=== PATIENT | male | born 1975 | race Caucasian/White ===

== ENCOUNTER 2017-10-07 09:58 | Day surgery (SDC) | payer OTHER ==
[~2017-10-07 09:58] MED LIST: Buffered Lidocaine 0.9% SYRIN* 5 ML/SYR SYRINGE INTRADERM ONE; Dexamethasone IV* 4 MG/ML 1 ML (4 MG) IV SLOW PU ONE; Famotidine IV* 10 MG/ML 2 ML (20 mg) IV ONE
[2017-10-07] MEDS ORDERED: Famotidine IV* 10 MG/ML 2 ML (20 mg) ONE (10:16)
[2017-10-07] MEDS ORDERED: Dexamethasone IV* 4 MG/ML 1 ML (4 MG) ONE (10:16)
[2017-10-07] MEDS ORDERED: ceFAZolin 2 GM PREMIX (*) 2 GM/50 ML BAG IVPB ONE (10:17)
[2017-10-07] MEDS ORDERED: Ondansetron INJ* 2 MG/ML VIAL ONE (10:22)
[2017-10-07] MEDS ORDERED: Propofol* 10 MG/ML 20 ML BTL IV PUSH ONE (10:22)
[2017-10-07] MEDS ORDERED: Ketorolac INJ* 30 MG/ML 1 ML VIAL ONE (10:22)
[2017-10-07] MEDS ORDERED: fentaNYL* 50 MCG/ML 2 ML VIAL (100 MCG VIAL) ONE ×3 (10:23→13:51)
[2017-10-07] MEDS ORDERED: Atracurium* 10 MG/ML 10 ML VIAL ONE (10:23)
[2017-10-07] MEDS ORDERED: Midazolam* 1 MG/ML 5 ML VIAL (5 MG) ONE (10:23)
[2017-10-07] MEDS ORDERED: ROPIVACAINE 5 MG/ML 30 ML BTL (0.5%) ONE (11:17)
[2017-10-07] MEDS ORDERED: Midazolam* 1 MG/ML 2 ML VIAL (2 MG) ONE (11:49)
[2017-10-07] MEDS ORDERED: Glycopyrrolate IV* 0.2 MG/ML 1 ML VIAL ONE (12:24)
[2017-10-07] MEDS ORDERED: Bupivacaine 0.25% SDV* 30 ML ONE (12:26)
[2017-10-07] MEDS ORDERED: Naloxone* 0.4 MG/ML 1 ML VIAL IV PRN (12:51)
[2017-10-07] MEDS ORDERED: Ondansetron INJ* 2 MG/ML VIAL IV PRN (12:51)
[2017-10-07] MEDS ORDERED: fentaNYL* 50 MCG/ML 2 ML VIAL (100 MCG VIAL) IV PRN (12:51)
[2017-10-07] MEDS ORDERED: HYDROmorphone INJ* 1 MG/ML CARPUJECT SYRINGE IV PRN (12:51)
[2017-10-07] MEDS ORDERED: oxyCODONE/Acetamin 5/325 MG* TAB PO PRN (12:51)
[2017-10-07 15:31] VITALS: BP 107/80
--- NOTE | 2017-10-12 11:13 | OP ---
DATE OF OPERATION: 10/07/17 [facility] DATE OF : 71 SURGEON: Mitali Huber MD SHIFT BOSS: DIMPLE Roque. An promotions assistant sales marketing was needed for the entirety of the case to help with positioning, retraction, and was utilized throughout all portions of the case. ANESTHESIOLOGIST: Juanjose Guerin MD PRE-OP DIAGNOSES: Right shoulder subscapularis tear and biceps subluxation. POST-OP DIAGNOSES: Right shoulder subscapularis tear and biceps subluxation. OPERATIVE PROCEDURE: 1. Right shoulder arthroscopy with rotator cuff repair, arthroscopic, of the subscapularis; debridement of the supraspinatus. 2. Subacromial decompression with acromioplasty. 3. Subpectoral biceps tenodesis. INDICATIONS: Bassam Mullins is a 42-year-old male, who sustained a work-related injury in June, was diagnosed with a subscapularis tear of proximal portion of the tendon with subluxation in the biceps. He has failed conservative management. Due to his young age, I have determined to do this as soon as possible. Risks and benefits of surgery were discussed at length and included, but are not limited to, bleeding, infection, damage to nerves, vessels, surrounding structures, wound nonhealing, persistent pain, need for further surgery, scarring, stiffness, incomplete relief of symptoms, and risk of anesthesia. DESCRIPTION OF PROCEDURE: The patient was greeted in the preoperative area by the attending surgeon. The correct extremity was marked and consent was confirmed. The patient underwent interscalene nerve block by the anesthesiologist after which he was brought back to the operating suite where he was placed in supine position on the operating table. He then underwent general anesthesia and endotracheal intubation. He was placed in the left lateral decubitus position. All bony prominences were padded. He was secured with a peg board. The right arm was draped unsterile with 10 pounds of traction. The right shoulder was prepped and draped in the usual sterile fashion beginning with chlorhexidine soap scrub and alcohol wipe and a final prep with ChloraPrep. After appropriate surgical pause indicating side, site, and procedure, and administration of antibiotics, the standard posterolateral portal was made sharply with an 11-blade. Scope was introduced into the joint. The joint was examined. There were grade 0 to 1 changes in the humeral head and grade 1 smaller to grade 2 changes with unstable flaps. There was evidence of the biceps subluxed with tearing and irritation to the humeral head from the biceps itself. The subscap was evidently was torn, retracted, but the tendon was still visible. The undersurface of the supraspinatus was intact. There was abundant synovitis in the joint. The head was located appropriately. There was evidence of tearing of the superior labrum. The anterior portal was made in an outside-in fashion. Shaver was used to debride back the anterior, posterior, and superior labrum and do biceps tenotomy. This allowed for better visualization of the subscap tendon. This was then gently mobilized. The coracoid was identified and coracoplasty was done using the bur to remove any possible spurring that may impair the healing or aggravate the repair. The electrocautery device was then used to do a release of the subscap, to allow the tissues to be mobilized in the joint as well as extra-articularly. Once this was done, attention was directed to the subacromial space. The scope was positioned in the subacromial space. The lateral portal was made in outside-in fashion. Shaver was used to remove the abundant bursa that was present. A small anterolateral spur was identified. This was debrided back using the shaver. Attempt to try to find the bursal side of the tear was then done using the 70-degree scope. This allowed for further release of the tissue and immobilization. Once this was done, the lesser tuberosity was then gently decorticated using the oval bur. The tissue was then carefully mobilized and attempt to make a repair intra-articularly was done, but it was found to have better purchase in grabbing of the tissue to grab in the bursal space. The rotator cuff was then prepared in the usual fashion. The rasp and the bur were used to gently decorticate the lesser tuberosity. The soft tissues were mobilized. The Rincon and Nephew tape suture was then passed in horizontal mattress configuration with full-thickness bites to the tendon. This allowed to mobilize the tendon and it was repaired using a Multifix anchor. This helped to restore the tension on the subscap. The final images were obtained. Shoulder was gently taken through range of motion. The wounds were copiously irrigated with sterile saline. Attention was directed to the biceps. The bed was airplaned to the right side. The anterior aspect of the shoulder was prepped again using the ChloraPrep. A 15- blade was used to make incision in line with the biceps tendon. The soft tissues were carefully dissected using the Metzenbaum scissors until the fascia was identified, then the remainder of the dissection was done bluntly. The Stanford elevator was then used to elevate the pec and the bicipital groove was identified. The biceps was brought through the wound. There was abundant synovitis, tendinosis, and tendinitis. The groove was prepared in the usual fashion with the electrocautery device, the red ball rasp and osteotome to allow for bony bleeding bed. The Q-FIX anchor was drilled unicortically and then the Q-FIX anchor was placed with excellent purchase. Sutures were then passed through the tendon approximately 1 cm proximal to the musculotendinous junction. These were then tied down and the excess biceps stump was removed. The wounds were copiously irrigated with sterile saline. Portals were closed with 3-0 nylon. The anterior wound was closed in layers with 2-0 Vicryl and 3- 0 Monocryl. Sterile dressings were applied. The anterior portal was injected with 0.25% Marcaine plain. He was awoken from anesthesia and transferred to PACU in stable condition. POSTOPERATIVE PLAN: He will be nonweightbearing. He will be in the splint for 6 weeks. He will start physical therapy at 4 weeks. No external rotation for 8 weeks. DVT prophylaxis considered, but deferred due to no previous personal or family history. He will be discharged on pain medication. 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 I will see the patient back in 14 days. [id number]/[facility] #: [id number] [facility] SYSTEM[facility]ook
== END 2017-10-07 15:49 | disposition home or self-care (01) ==
LOC: OR 09:58
PROVIDERS: ATTEND Orthopaedic Surgery
DX: S46.011A Strain of muscle(s) and tendon(s) of the rotator cuff of right shoulder, initial encounter (principal); S43.081A Other subluxation of right shoulder joint, initial encounter; X58.XXXA Exposure to other specified factors, initial encounter; Y92.89 Other specified places as the place of occurrence of the external cause; Y99.0 Civilian activity done for income or pay; Z87.891 Personal history of nicotine dependence; F43.10 Post-traumatic stress disorder, unspecified; F41.9 Anxiety disorder, unspecified; G89.18 Other acute postprocedural pain
CPT/HCPCS: C1776; J0690; J1100; J1885; J2250; J2405; J2704; J2795; J3010